=== PATIENT | female | born 1970 | race Caucasian/White ===

== ENCOUNTER 2025-04-21 00:41 | Inpatient (IN) | payer OTHER ==
[~2025-04-21] VITALS: Ht 309.9 cm; Wt 64.9 kg
[2025-04-21] MEDS: IBUPROFEN 600MG TABLET PO ONE (02:17)
[2025-04-21] MEDS: MORPHINE SULFATE 2 MG/ML INJ (NOT FOR IM USE) IV ONE (04:29)
[2025-04-21 05:44] LABS: BASOPHILS % 0.5 % (0.0-2.0); EOSINOPHILS % 0.3 % (0.0-5.0); HEMATOCRIT. 36.0 % (36.0-48.0); HEMOGLOBIN. 12.3 g/dL (12.0-16.0); LYMPHOCYTES % 29.8 % (20.0-50.0); MEAN PLATELET VOLUME 9.8 fl (7.4-10.4); MONOCYTES % 3.6 % (2.0-8.0); NEUTROPHILS % 65.8 % (40.0-76.0); PLATELET 231 x1000/uL (130-400); RED BLOOD CELL COUNT 3.93 mill/uL (4.2-5.4); RED CELL DISTRIBUTION WIDTH 13.2 % (11.6-14.6)
[2025-04-21 06:03] LABS: CREATININE 0.7 mg/dL (0.6-1.0); UREA NITROGEN BLOOD 15 mg/dL (9-23)
[2025-04-21 06:49] LABS: INR 0.9
[2025-04-21] MEDS: SODIUM CHLORIDE 0.9% 500 ML IV ONE (06:59)
[2025-04-21] MEDS ORDERED: NALOXONE HCL 0.4MG/ML VIAL IV PRN (07:30)
[2025-04-21] MEDS ORDERED: IPRATROPIUM/ALBUTEROL 0.5-3(2.5)MG/3ML NEB HHN PRN (07:30)
[2025-04-21] MEDS ORDERED: MAGNESIUM/ALUMINUM HYDROXIDE/SIMETHICONE 30ML UDC PO PRN (07:30)
[2025-04-21] MEDS ORDERED: ZOLPIDEM TARTRATE 5MG TABLET PO PRN (07:30)
[2025-04-21] MEDS ORDERED: CLONIDINE 0.1MG TABLET PO PRN (07:30)
[2025-04-21] MEDS ORDERED: ACETAMINOPHEN 325MG TABLET PO PRN (07:30)
[2025-04-21 08:00] VITALS: BP_SYST 128; BP_DIAS 68; BP_DIAS 88; PULSE 79; RESP 18; TEMP 36.5; O2SAT 99
[2025-04-21] MEDS: PANTOPRAZOLE SODIUM 40 MG/VIAL IV SCH (09:13)
[2025-04-21] MEDS: ENOXAPARIN 40MG/0.4ML SYR SUBCUT SCH (09:13)
[2025-04-21] MEDS: HYDROCODONE/ACETAMINOPHEN 5/325MG TABLET PO PRN (09:15)
[2025-04-21] MEDS ORDERED: DEXTROSE 50% WATER 50ML SYRINGE IV PRN (09:45)
[2025-04-21 12:00] VITALS: BP 134/56; PULSE 71; RESP 17; TEMP 36.4; O2SAT 99
[2025-04-21] MEDS: SODIUM CHLORIDE 0.9% 1,000 ML IV SCH (12:44)
[2025-04-21] MEDS: BLOOD SUGAR DIAGNOSTIC STRIP TEST SCH (12:44)
[2025-04-21] MEDS: INSULIN LISPRO 100 UNITS/ML SUBCUT SCH (12:44)
[2025-04-21 13:35] VITALS: BP 128/68; PULSE 79; RESP 18; TEMP 36.5292
[2025-04-21 16:00] VITALS: BP 131/58; PULSE 71; RESP 18; TEMP 36.6; O2SAT 98
[2025-04-21] MEDS: ONDANSETRON HCL 4MG/2ML INJ IV PRN (18:56)
[2025-04-21 20:00] VITALS: BP 125/47; PULSE 78; RESP 18; TEMP 36.5; O2SAT 96
[2025-04-22] VITALS: BP 137/85; PULSE 66; RESP 18; TEMP 36.6; O2SAT 98
[2025-04-22 04:00] VITALS: BP 143/68; PULSE 65; RESP 18; TEMP 36.6; O2SAT 98
[2025-04-22 08:49] LABS: BASOPHILS % 0.4 % (0.0-2.0); EOSINOPHILS % 1.6 % (0.0-5.0); HEMATOCRIT. 31.4 % (36.0-48.0); HEMOGLOBIN. 10.9 g/dL (12.0-16.0); LYMPHOCYTES % 36.9 % (20.0-50.0); MEAN PLATELET VOLUME 9.7 fl (7.4-10.4); MONOCYTES % 7.0 % (2.0-8.0); NEUTROPHILS % 54.1 % (40.0-76.0); PLATELET 201 x1000/uL (130-400); RED BLOOD CELL COUNT 3.47 mill/uL (4.2-5.4); RED CELL DISTRIBUTION WIDTH 13.5 % (11.6-14.6)
[2025-04-22 09:10] LABS: CREATININE 0.7 mg/dL (0.6-1.0); UREA NITROGEN BLOOD 12 mg/dL (9-23)
[2025-04-22] MEDS ORDERED: HYDR-4001 MT (09:27)
[2025-04-22 13:57] VITALS: BP 121/63; PULSE 88; TEMP 98.2; O2SAT 100
== END 2025-04-22 16:45 | disposition home or self-care (01) | DRG 342 ==
LOC: EDSEX 00:41 → ER 00:41 → EDBEDREQ 06:32 → 8EST 06:32 → ENRESERV 07:08
PROVIDERS: ADMIT Internal Medicine; ATTEND Internal Medicine
DX: S82.031A Displaced transverse fracture of right patella, initial encounter for closed fracture (principal); E11.9 Type 2 diabetes mellitus without complications; W18.39XA Other fall on same level, initial encounter; Y93.89 Activity, other specified; Y92.89 Other specified places as the place of occurrence of the external cause; Y99.8 Other external cause status
CPT/HCPCS: 36415; 73564; 73700; 80048; 82962; 83036; 85025; 94640; 97162; 99285; J1650; J1815; J2270; J2405; J2470; J7030; J7040